=== PATIENT | female | born 1940 | race Caucasian/White ===

== ENCOUNTER 2022-03-24 17:46 | Inpatient (IN) | payer MEDICARE ==
[~2022-03-24] VITALS: Ht 152.4 cm; Wt 61.2 kg
--- NOTE | 2022-03-24 18:20 | NUR ---
PER [facility] REPORT , PT HAS 2OG LFA APPROX 250NS BOLUS GIVEN PRIOR TO ARRIVAL WITH PT DENYING CP OR SOB UPON ARRIVAL.
--- NOTE | 2022-03-24 19:35 | NUR ---
MD Gomez at bedside examining pt.
[2022-03-24 20:22] LABS: EOSINOPHILS # (AUTO) 0.1 K/uL (0.0-0.4); EOSINOPHILS % (AUTO) 2.7 % (0.0-4.0); HEMATOCRIT 38.8 % (36-48); HEMOGLOBIN 13.1 g/dL (12.0-16.0); LYMPHOCYTES # (AUTO) 1.6 K/uL (1.0-5.5); LYMPHOCYTES % (AUTO) 42.7 % (20.5-51.5); MEAN CORPUSCULAR HEMOGLOBIN 31 pg (27-31); MEAN CORPUSCULAR HGB CONC 34 % (32-36); MEAN CORPUSCULAR VOLUME 92 fL (79.0-98.0); MONOCYTES # (AUTO) 0.5 K/uL (0.0-1.0); MONOCYTES % (AUTO) 13.9 % (1.7-9.3); NEUTROPHILS # (AUTO) 1.5 K/uL (1.8-7.7); NEUTROPHILS % (AUTO) 39.7 % (40.0-70.0); PLATELET COUNT (AUTO) 210 K/uL (130-430); RED BLOOD CELL COUNT(AUTO) 4.22 MIL/uL (4.2-6.2); RED CELL DISTRIBUTION WIDTH 14.5 % (9.0-15.0); WHITE BLOOD COUNT (AUTO) 3.7 K/uL (4.8-10.8)
[2022-03-24 20:31] LABS: ANION GAP 6 (5-15); CALCIUM 8.7 mg/dL (8.4-11.0); CHLORIDE 106 mmol/L (98-107); CREATININE 0.76 mg/dL (0.55-1.30); GLUCOSE 90 mg/dL (70-99); UREA NITROGEN, BLOOD 17 mg/dL (8-21)
[2022-03-24 20:46] LABS: ALANINE AMINOTRANSFERASE 23 U/L (12-78); ASPARTATE AMINOTRANSFERASE 31 U/L (10-37); PHOSPHORUS 3.3 mg/dL (2.7-4.5); THYROID STIMULATING HORMONE 2.16 uIu/mL (0.36-3.74); TOTAL BILIRUBIN 0.3 mg/dL (0.0-1.0)
--- NOTE | 2022-03-24 22:01 | NUR ---
Pt BIB BLS ambulance from home with c/o dizziness and SOB. Pt states she has had a cold since saturday, but symptoms worsened today. Denies any episodes of CP. Denies any N&V. Arrived to ED in no acute distress. VSS. Breathing adequately on RA.
--- NOTE | 2022-03-24 22:40 | NUR ---
RAD at bedside for imaging.
--- NOTE | 2022-03-25 02:09 | NUR ---
COVID SWAB COLLECTED AND SENT TO LAB.
--- NOTE | 2022-03-25 02:24 | NUR ---
# 22 gauge angiocath placed to R HAND. Use of asceptic technique. Opsite placed over site. Blood return noted. Flushed with 10 cc of normal saline. No evidence of infiltration noted. Patient tolerated well.
--- NOTE | 2022-03-25 03:13 | NUR ---
Admit bed requested Patient will be admitted to care of . Admitted to TELE unit. Diagnosis : AFIB Inpatient (Yes or No) Y Observation (Yes or No) N Covid Status : PENDING From Home (Yes or if No enter name of facility) Y Med Rec Completed (Yes of No) Y
--- NOTE | 2022-03-25 04:18 | NUR ---
Medication reconciliation; pt denies taking any medications.
--- NOTE | 2022-03-25 04:30 | NUR ---
ADMIT NOTE Received SBAR report from MORAIMA Addison. She arrived from ER with a diagnosis of A-fib. Admission process initiated. Patient oriented to pain management, safety and call light-teach back done.
[2022-03-25 04:41] VITALS: BP_SYST 144
--- NOTE | 2022-03-25 06:50 | NUR ---
closing note Patient resting with eyes closed in comfortable position. No distress, non labored breathing. Safety precautions in place, will endorse care to day shift nurse.
--- NOTE | 2022-03-25 07:00 | NUR ---
Report received from affiliate marketing specialist RN for continuity of care. Patient in stable condition. No distress noted.
[2022-03-25 07:49] VITALS: BP_SYST 125
[2022-03-25] MEDS ORDERED: ACETAMINOPHEN 325 MG TABLET PO PRN ×2 (08:00)
[2022-03-25] MEDS ORDERED: MUPIROCIN 2% TOPICAL OINTMENT 22 GM NS PRN (08:00)
[2022-03-25] MEDS ORDERED: ONDANSETRON HCL 4 MG/2 ML VIAL IVP PRN (08:00)
[2022-03-25] MEDS ORDERED: POTASSIUM CHLORIDE 20 MEQ TAB.PRT.SR PO PRN (08:00)
[2022-03-25] MEDS ORDERED: MORPHINE 2 MG/ML INJ. SYRINGE IVP PRN ×2 (08:00)
[2022-03-25] MEDS ORDERED: DOCUSATE SODIUM 100 MG CAPSULE PO PRN (08:00)
[2022-03-25] MEDS ORDERED: MAGNESIUM SULFATE 50 ML IV PRN (08:00)
--- NOTE | 2022-03-25 09:23 | NUR ---
Updated Dr. Solorzano on patient situation.
[2022-03-25] MEDS ORDERED: METOPROLOL SUCCINATE 25 MG TAB.SR.24H (TOPROL XL) PO ONE (10:30)
[2022-03-25] MEDS ORDERED: ASPIRIN 81 MG TAB.CHEW PO ONE ×2 (11:00→11:15)
--- NOTE | 2022-03-25 11:51 | NUR ---
Patient refused aspirin. Dr. Romero made aware.
[2022-03-25 12:00] VITALS: BP_SYST 115
[2022-03-25 16:00] VITALS: BP_SYST 120
--- NOTE | 2022-03-25 19:32 | NUR ---
Report given to electromedical equipment technician RN for continuity of care. Patient in stable condition. No distress.
--- NOTE | 2022-03-25 19:35 | NUR ---
OPENING NOTES: Patient received from AM shift nurse MARIAH. Patient is AA&Ox4 able to make needs known, denies any pain or distress at this time and has call light within reach. Chest rise is even and unlabored on RA and patient is on tele monitoring due to new onset of Afib. Patient is stable at this time and safety measures are in place as per protocol. Will resume care and continue to monitor throughout the shift.
[2022-03-25 20:00] VITALS: BP_SYST 116
[2022-03-26 00:20] VITALS: BP_SYST 135
[2022-03-26 02:40] LABS: ANION GAP 8 (5-15); CALCIUM 8.7 mg/dL (8.4-11.0); CHLORIDE 105 mmol/L (98-107); CREATININE 0.85 mg/dL (0.55-1.30); GLUCOSE 89 mg/dL (70-99); UREA NITROGEN, BLOOD 16 mg/dL (8-21)
[2022-03-26 02:50] LABS: BASOPHILS % (AUTO) 0.7 % (0.0-2.0); EOSINOPHILS # (AUTO) 0.2 K/uL (0.0-0.4); EOSINOPHILS % (AUTO) 6.2 % (0.0-4.0); HEMATOCRIT 33.9 % (36-48); HEMOGLOBIN 11.6 g/dL (12.0-16.0); LYMPHOCYTES # (AUTO) 1.9 K/uL (1.0-5.5); LYMPHOCYTES % (AUTO) 50.9 % (20.5-51.5); MEAN CORPUSCULAR HEMOGLOBIN 31 pg (27-31); MEAN CORPUSCULAR HGB CONC 34 % (32-36); MEAN CORPUSCULAR VOLUME 91 fL (79.0-98.0); MONOCYTES # (AUTO) 0.3 K/uL (0.0-1.0); NEUTROPHILS # (AUTO) 1.2 K/uL (1.8-7.7); NEUTROPHILS % (AUTO) 33.2 % (40.0-70.0); PLATELET COUNT (AUTO) 205 K/uL (130-430); RED BLOOD CELL COUNT(AUTO) 3.74 MIL/uL (4.2-6.2); RED CELL DISTRIBUTION WIDTH 14.5 % (9.0-15.0); WHITE BLOOD COUNT (AUTO) 3.7 K/uL (4.8-10.8)
--- NOTE | 2022-03-26 03:01 | NUR ---
CRITICAL LAB: from Laboratory called with critical lab value 62. Medical record number and patient name verified. Read back of values done. Dr. Romero notified of value. No orders given at this time.
--- NOTE | 2022-03-26 06:30 | NUR ---
CLOSING NOTES: Patient is in bed resting no s/s of distress noted at this time. Patient is AA&Ox4 able to make needs known, denies any pain or distress and has call light within reach. Patient is stable at this time, all current shift needs have been met at this time, and safety measures are in place as per protocol. Will differ further care to AM shift for continuity of care.
[2022-03-26] MEDS ORDERED: METO25TA3 PO (07:49)
[2022-03-26] MEDS ORDERED: ASPI-1393 PO (07:49)
[2022-03-26 08:00] VITALS: BP_SYST 134
[2022-03-26] MEDS ORDERED: ASPIRIN 81 MG TAB.CHEW PO SCH (09:00)
[2022-03-26] MEDS ORDERED: METOPROLOL SUCCINATE 25 MG TAB.SR.24H (TOPROL XL) PO SCH (09:00)
[2022-03-26 11:28] VITALS: BP_SYST 141
--- NOTE | 2022-03-26 11:34 | NUR ---
P.T. NOTES P.T. EVAL COMPLETED; REFER TO EVAL FOR DETAILS; ENDORSED TO NURSING.
== END 2022-03-26 11:55 | disposition home or self-care (01) | DRG 281 ==
LOC: SED 17:46 → STU 03-25 03:05
PROVIDERS: ADMIT Family Medicine; ATTEND Family Medicine
DX: I48.0 Paroxysmal atrial fibrillation (principal); I21.A1 Myocardial infarction type 2; E44.1 Mild protein-calorie malnutrition; E78.00 Pure hypercholesterolemia, unspecified; Z20.822 Contact with and (suspected) exposure to COVID-19; E78.5 Hyperlipidemia, unspecified; I45.10 Unspecified right bundle-branch block; Z68.26 Body mass index [BMI] 26.0-26.9, adult; Z90.710 Acquired absence of both cervix and uterus; Z88.6 Allergy status to analgesic agent
CPT/HCPCS: 36415; 71045; 80048; 80053; 83735; 84100; 84443; 84484; 85025; 93005; 93306; 97163-GP; 99285; G0378